=== PATIENT | female | born 1945 | race Caucasian/White ===

== ENCOUNTER 2017-04-06 09:38 | Emergency (ER) | payer MEDICARE, MEDICAID ==
[~2017-04-06 09:38] MED LIST: ARIP15TA2 PO; BUSP15TA3 PO; CHOL200025 PO; CITA20TA11 PO; DOCU250C2 PO; FERR-83 PO; FOLI1TAB18 PO; FURO-129 PO; HYDR-656 PO; LAMO100T2 PO; LORA0.5T PO; METO25TA99 PO; NITR0.4T6 SL; PANT40TA3 PO; RANI300T4 PO; TOPI200T7 PO; ZYL100 PO
[2017-04-06 09:44] VITALS: BP 164/83; PULSE 86; RESP 14; O2SAT 95
--- NOTE | 2017-04-06 10:18 | ED.REPORT ---
HPI-Extremity Problem Lower Date of Service April 06, 2017 ED Provider: Volodymyr Barajas MD 71 year old female with a history of CHF presents to the ER accompanied by her rn long term care complaining of three days of acute on chronic left lower extremity pain, localized in her ankle and barksdale. Pain is sharp in character, rated 10/10 in severity, and is exacerbated by weight-bearing and ambulation. Patient denies radiation of pain, weakness, chest pain, abdominal pain, and any recent trauma. She has a history of surgery to repair compound fractures in the affected extremity, performed by Dr. Shabazz, Orthopedics, at [facility]. Symptoms have been treated with acetaminophen without relief. Nursing Notes Stated Complaint: LEG PAIN Chief Complaint: Extremity Trauma Nursing Notes Reviewed: Yes Allergies: Coded Allergies: NSAIDS (Non-Steroidal Anti-Inflamma (Verified Allergy, Unknown, GI BLEEDING, 04/19/16) ampicillin (Verified Allergy, Unknown, 04/19/16) chlorpromazine HCl (Verified Allergy, Unknown, 04/19/16) warfarin (Verified Allergy, Unknown, GI BLEED, 04/19/16) Scheduled Allopurinol (Allopurinol) 100 Mg Tablet 100 MG PO DAILY Aripiprazole (Abilify) 15 Mg Tablet 15 MG PO DAILY Buspirone (Buspirone) 15 Mg Tablet 15 MG PO BID Cholecalciferol (Vitamin D3) (Vitamin D3) 2,000 Unit Tablet 2,000 UNIT PO BID Citalopram (Citalopram) 20 Mg Tablet 30 MG PO DAILY Ferrous Sulfate (Ferrous Sulfate) 325 Mg Tablet 325 MG PO BID Folic Acid (Folic Acid) 1 Mg Tablet 1 MG PO DAILY Furosemide (Lasix) 20 Mg Tablet 20 MG PO DAILY Lamotrigine (Lamotrigine) 100 Mg Tablet 100 MG PO BID Metoprolol Succinate ER (Metoprolol Succinate ER) 25 Mg Tab.er.24h 25 MG PO DAILY Pantoprazole DR (Pantoprazole DR) 40 Mg Tablet.dr 40 MG PO DAILY Ranitidine (Ranitidine) 300 Mg Tablet 300 MG PO HS Topiramate (Topiramate) 200 Mg Tablet 200 MG PO HS Scheduled PRN Docusate Sodium (Docusate Sodium) 250 Mg Capsule 250 MG PO DAILY PRN PRN DAILY Lorazepam (Lorazepam) 0.5 Mg Tablet 0.5 MG PO HS PRN PRN For Insomnia Nitroglycerin SL (Nitroglycerin SL) 0.4 Mg Tab.subl 0.4 MG SL PRN PRN PRN For Chest Pain hydrOXYzine Hcl (HydrOXYzine Hcl) 25 Mg Tablet 25 MG PO QID PRN PRN For Itching oxyCODONE-Acetaminophen 5-325 mg (oxyCODONE-Acetaminophen 5-325 mg) 1 Each Tablet 1 TAB PO Q4H PRN PRN For Pain General Time Seen by MD: 10:17 Chief Complaint Leg injury left Hx Obtained From: Patient Arrived By: Walk-in Onset Occurred: 3 days ago Symptom Duration: Since onset Location: : Ankle left: Leg left Quality: Sharp Severity: Current: Moderate Severity: Maximum: Pain level 10 out of 10 Associated with: Denies: Abdominal pain, Chest pain Pertinent Negative: Pt denies other symptoms Similar Sx Previous: Yes Past Medical History Past Medical History Small bowel obstruction 07/23 , 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, resolved as of 08/22 with wound VAC in place Bipolar borderline personality disorder Chronic anemia Back pain [place] congestive heart failure Reports: GERD, Hypertension Reports: Atrial fibrillation Past Surgical History History of self cutting Laparoscopic-assisted lysis of adhesions with minilaparotomy repair of enterotomy on July 30 Reports: Hysterectomy Family History Noncontributory Smoking History Never Smoker Social History Had been living independently with the rn long term care is currently at a alf facility after most recent hospital discharge EMS reports that there is a history of alcohol abuse Other Social History: Local resident Ambulatory Status Independent Review of Systems Constitutional: Denies: Chills, Fever Musculoskeletal: Reports: Extremity pain (Left Leg), Denies: Back pain, Joint pain, Lumbar pain, Neck pain, Thoracic pain Neurologic: Denies: Numbness, Syncope Complete sys rev & neg: except as marked. Respiratory: Denies: Non-productive cough, Shortness of breath Cardiovascular: Denies: Chest pain GI: Denies: Abdominal pain Physical Exam Initial Vital Signs Vital Signs (First) Date Time Temp Pulse Resp B/P Pulse Ox O2 Delivery O2 Flow Rate FiO2 04/06/17 09:44 36.2 86 14 164/83 95 Room Air Initial VS: Reviewed Head / Eyes: Atraumatic, Normocephalic, PERRL Neck: Supple, Non-tender, Full range of motion Abdomen / GI: Soft, Non-tender, No guarding, No rebound, No distention Upper Extremities: Vascular intact, Neuro intact, No swelling, No tenderness Skin: Warm, Dry, No cyanosis Neurologic: Alert, Oriented, Nonfocal Lower Extremity / Pelvis / MS: Full range of motion, No deformity, Neurologic intact, Vascular intact Left Leg / Calf: Positive: Tenderness present... (along the fibula) Minor excoriations along left anterior barksdale. Ankle / Foot: Full range of motion, No deformity, Neurologic intact, Vascular intact General/Constitutional: Awake, Alert, Well developed Interpretation & Diagnostics X-Ray Interpretation Xray Interpretation: IMPRESSION: No significant change compared to 2.27.17. Dictated by: Amanda Seals M.D. on 04/06/2017 at 11:14 Approved by: Amanda Seals M.D. on 04/06/2017 at 11:15 X-Ray Ordered: Tibia fibula left Interpretation / Wet Read by: Interpret - Radiologist Re-Eval/Medical Decision Source of Hx: Old records Re-Evaluation/Progress : Time of Eval: 12:21 Re-Evaluation/Progress Note: Discussed imaging results and plan to discharge. Patient is amenable to the plan. Return precautions given. All other questions addressed. Counseled Regarding: Diagnosis, Lab results, Need for follow-up, When/why to return to ED Discharge & Departure Impression: Primary Impression: Leg pain Laterality: left Qualified Code: M79.605 - Pain in left leg Disposition: Home Discharge Condition All VS Reviewed: Yes Condition: Improved Patient Instructions: Leg Pain (ED) Additional Instructions: Continue all OF YOUR regular medication. Take the stronger pain medication as needed. Be cautious of constipation while taking this. Follow up with your doctor in the coming days for further evaluation as needed. No evidence of infection or new fracture. X-ray is normal. Return to the ER if you develop new or uncontrollable pain, chest pain, fever, nausea, vomiting, or any other concerning symptoms. Referrals: Seema Nichols (PCP) Sc[employer] Attestation Portions of this note were transcribed by Raymond Kelsey. I, Dr. Barajas, personally performed the history, physical exam and medical decision-making; I reviewed and confirmed the accuracy of the information in the transcribed note. Signed by: Barbara Dillon, 04/06/2017 at 12:30 copies to: PendSeema aguilera Kirk H MD April 06, 2017 10:18 RAYMOND KELSEY April 06, 2017 10:39
[2017-04-06] MEDS ORDERED: oxyCODONE-Acetamin 5-325 mg Tablet PO ONE (10:55)
--- NOTE | 2017-04-06 11:16 | DRSVH ---
PROCEDURE: X-RAY LEFT TIBIA/FIBULA, TWO VIEWS ([id number]) INDICATIONS: pain, previous surgery TECHNIQUE: 2 views of the tibia and fibula were acquired. COMPARISON: [facility], CR, XR TIBIA FIBULA 2VW LT, 017, 9:38. FINDINGS: Bones: Near plasty. Intramedullary mini within distal femur. ORIF of tibia. Healed proximal fibular ne ck fracture. Chronic distal fibular fracture. Visualized fracture fragments are unchanged in alignmen t. No suspicious bony lesions. Soft tissues: No suspicious soft tissue calcifications or masses. IMPRESSION: No significant change compared to 2.27.17. Dictated by: Amanda Seals M.D. on 04/06/2017 at 11:14 Approved by: Amanda Seals M.D. on 04/06/2017 at 11:15
[2017-04-06] MEDS ORDERED: OXYC1TAB24 PO (12:26)
== END 2017-04-06 12:30 | disposition home or self-care (01) ==
LOC: SED 09:38
DX: M79.605 Pain in left leg (principal); G89.29 Other chronic pain; I11.0 Hypertensive heart disease with heart failure; I50.9 Heart failure, unspecified; D64.9 Anemia, unspecified; I25.2 Old myocardial infarction; K21.9 Gastro-esophageal reflux disease without esophagitis; F31.9 Bipolar disorder, unspecified; Z88.1 Allergy status to other antibiotic agents; Z88.8 Allergy status to other drugs, medicaments and biological substances

== ENCOUNTER 2017-04-16 10:52 | Emergency (ER) | payer MEDICARE, MEDICAID ==
[~2017-04-16] VITALS: Ht 177.8 cm; Wt 81.8 kg
[~2017-04-16 10:52] MED LIST changes: +OXYC1TAB24 PO
[2017-04-16 10:57] VITALS: BP 150/75; PULSE 77; RESP 15; O2SAT 95
--- NOTE | 2017-04-16 11:14 | ED.REPORT ---
HPI-Trauma Minor / Fall Date of Service Apr 16, 2017 ED Provider: Dr. Barajas 71 y/o female with a hx of CHF, HTN, fibromyalgia and A-fib presents to the ED complaining of left knee pain and swelling, onset 2 days ago after the pt fell onto cement floor. The pt states she has fallen 3 times in the last two days because she is experiencing limited range of motion in the left leg. She denies LOC after the fall. Nursing Notes Stated Complaint: FELL/LEFT LEG PAIN Chief Complaint: Multiple Trauma/Fall Nursing Notes Reviewed: Yes Allergies: Coded Allergies: NSAIDS (Non-Steroidal Anti-Inflamma (Verified Allergy, Unknown, GI BLEEDING, 04/19/16) ampicillin (Verified Allergy, Unknown, 04/19/16) chlorpromazine HCl (Verified Allergy, Unknown, 04/19/16) warfarin (Verified Allergy, Unknown, GI BLEED, 04/19/16) Scheduled Allopurinol (Allopurinol) 100 Mg Tablet 100 MG PO DAILY Aripiprazole (Abilify) 15 Mg Tablet 15 MG PO DAILY Buspirone (Buspirone) 15 Mg Tablet 15 MG PO BID Cholecalciferol (Vitamin D3) (Vitamin D3) 2,000 Unit Tablet 2,000 UNIT PO BID Citalopram (Citalopram) 20 Mg Tablet 30 MG PO DAILY Ferrous Sulfate (Ferrous Sulfate) 325 Mg Tablet 325 MG PO BID Folic Acid (Folic Acid) 1 Mg Tablet 1 MG PO DAILY Furosemide (Lasix) 20 Mg Tablet 20 MG PO DAILY Lamotrigine (Lamotrigine) 100 Mg Tablet 100 MG PO BID Metoprolol Succinate ER (Metoprolol Succinate ER) 25 Mg Tab.er.24h 25 MG PO DAILY Pantoprazole DR (Pantoprazole DR) 40 Mg Tablet.dr 40 MG PO DAILY Ranitidine (Ranitidine) 300 Mg Tablet 300 MG PO HS Topiramate (Topiramate) 200 Mg Tablet 200 MG PO HS Scheduled PRN Docusate Sodium (Docusate Sodium) 250 Mg Capsule 250 MG PO DAILY PRN PRN DAILY Lorazepam (Lorazepam) 0.5 Mg Tablet 0.5 MG PO HS PRN PRN For Insomnia Nitroglycerin SL (Nitroglycerin SL) 0.4 Mg Tab.subl 0.4 MG SL PRN PRN PRN For Chest Pain hydrOXYzine Hcl (HydrOXYzine Hcl) 25 Mg Tablet 25 MG PO QID PRN PRN For Itching oxyCODONE-Acetaminophen 5-325 mg (oxyCODONE-Acetaminophen 5-325 mg) 1 Each Tablet 1 TAB PO Q4H PRN PRN For Pain oxyCODONE-Acetaminophen 5-325 mg (oxyCODONE-Acetaminophen 5-325 mg) 1 Each Tablet 1 TAB PO Q6H PRN PRN For Pain General Time Seen by MD: 11:14 Chief Complaint Fall Hx Obtained From: Patient Arrived By: Walk-in Onset Occurred: 2 days ago Symptom Duration: Since onset Caused by: Fall on ground Location: Knee left Quality: Painful Severity: Current: Mild Severity: Maximum: Moderate Recent Healthcare: Recent doctor visit Similar Sx Previous: No Past Medical History Past Medical History Small bowel obstruction 07/23 , 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, resolved as of 08/[address] with wound [address] in place Bipolar borderline personality disorder Chronic anemia Back pain [place] congestive heart failure Reports: GERD, Hypertension Reports: Atrial fibrillation Past Surgical History History of self cutting Laparoscopic-assisted lysis of adhesions with minilaparotomy repair of enterotomy on July 30 Reports: Hysterectomy Family History Noncontributory Smoking History Never Smoker Social History Had been living independently with the plug shaper hand is currently at a jail facility after most recent hospital discharge EMS reports that there is a history of alcohol abuse Other Social History: Local resident Ambulatory Status Walker Review of Systems Musculoskeletal: Reports: Joint pain (Left knee), Joint swelling (Left knee) Neurologic: Denies: Change LOC Complete sys rev & neg: except as marked. Physical Exam Initial Vital Signs Vital Signs (First) Date Time Temp Pulse Resp B/P Pulse Ox O2 Delivery O2 Flow Rate FiO2 04/16/17 10:57 36.1 77 15 150/75 95 Room Air Initial VS: Reviewed Head / Eyes: Atraumatic, Normocephalic Respiratory: Breath sounds normal, No respiratory distress Cardiovascular: Regular rate & rhythm, Heart sounds normal, Intact distal pulses Abdomen / GI: Soft, Non-tender Extremities: Vascular intact, Neuro intact, No swelling, No tenderness Skin: Warm, Dry, No cyanosis Neurologic: Alert, Oriented, Nonfocal General/Constitutional: Awake, Alert, Cooperative Neck: Atraumatic, Full range of motion Lower Extremity / Pelvis / MS: Atraumatic, Full range of motion, No deformity, Neurologic intact, Vascular intact Left mid-barksdale mildly tender. Chronic wounds healed Interpretation & Diagnostics CT Head Interpretation IMPRESSION: 1. No acute intracranial abnormalities. 2. Cerebral volume loss and chronic microvascular ischemic changes. Dictated by: Jeffery Steele M.D. on 04/16/2017 at 11:57 Approved by: Jeffery Steele M.D. on 04/16/2017 at 11:58 Study: Head CT no contrast Interpretation / Wet Read by: Interpret - Radiologist Re-Eval/Medical Decision Source of Hx: Old records Re-Evaluation/Progress : Time of Eval: 11:20 Re-Evaluation/Progress Note: Rechecked pt. Discussed imaging results, diagnosis and plan to discharge. Pt understands and agrees with the plan. F/U instructions and RTER warning given. All questions addressed. Consultation : Call Returned at: 12:03 Regional Maintenance Manager: Agrees with eval, Agrees with plan Note: Consulted Ca Milan, who is ammunition components inspector for pt's PCP. She states it is okay to refill 14 Percocet pills. Counseled Regarding: Diagnosis, Lab results, Need for follow-up, When/why to return to ED Discharge & Departure Impression: Primary Impression: Left leg pain Additional Impressions: Facial contusion Encounter type: initial encounter Qualified Code: S00.83XA - Contusion of other part of head, initial encounter Fall from ground level Disposition: Home Discharge Condition All VS Reviewed: Yes Condition: Stable Patient Instructions: Contusion in Adults (ED) Additional Instructions: No dangerous injuries are suspected or identified today. I will refill the Percocet for today but would not be able to do this in the future. Follow-up with Seema next week as planned. Referrals: Seema Nichols (PCP) Scribe Attestation Portions of this note were transcribed by Dominick Das. I, , personally performed the history, physical exam and medical decision-making;I reviewed and confirmed the accuracy of the information in the transcribed note. Signed by Barbara Sampson. 04/16/17 12:03 copies to: Seema Nichols Kirk H MD Apr 16, 2017 11:14 Dominick Das Apr 16, 2017 11:19
--- NOTE | 2017-04-16 12:00 | DRSVH ---
PROCEDURE: CT BRAIN WITHOUT CONTRAST ([id number]) INDICATIONS: trauma TECHNIQUE: Noncontrast 4.5 mm thick angled axial sections acquired from the foramen magnum to the vertex, with c oronal reformats. COMPARISON: [facility], CT, CT BRAIN WO CON, 05/05/2016, 0:43. FINDINGS: Image quality: Excellent. CSF spaces: Basal cisterns are patent. No extra-axial fluid collections. The ventricles are symmet billy in size and shape. Brain: No intracranial bleeds or masses. There is mild to moderate cerebral volume loss for age, wi th resultant ventricular and sulcal prominence. There are mild to moderate periventricular and deep white matter chronic small vessel ischemic changes. There is intracranial internal carotid artery at herosclerosis. Skull and face: Calvarium and visualized facial bones appear intact, without suspicious lesions. Sinuses: Visualized sinuses and mastoids are clear. IMPRESSION: 1. No acute intracranial abnormalities. 2. Cerebral volume loss and chronic microvascular ischemic changes. Dictated by: Jeffery Steele M.D. on 04/16/2017 at 11:57 Approved by: Jeffery Steele M.D. on 04/16/2017 at 11:58
[2017-04-16] MEDS ORDERED: OXYC1TAB24 PO (12:44)
[2017-04-16 13:02] VITALS: BP 135/67; PULSE 66; RESP 20
== END 2017-04-16 13:00 | disposition home or self-care (01) ==
LOC: SED 10:52
DX: S00.83XA Contusion of other part of head, initial encounter (principal); M25.562 Pain in left knee; W01.0XXA Fall on same level from slipping, tripping and stumbling without subsequent striking against object, initial encounter; Y93.01 Activity, walking, marching and hiking; Y99.8 Other external cause status; Y92.89 Other specified places as the place of occurrence of the external cause; I10 Essential (primary) hypertension; I50.9 Heart failure, unspecified; I48.91 Unspecified atrial fibrillation; K21.9 Gastro-esophageal reflux disease without esophagitis; I25.2 Old myocardial infarction; Z86.2 Personal history of diseases of the blood and blood-forming organs and certain disorders involving the immune mechanism; Z90.710 Acquired absence of both cervix and uterus; Z88.8 Allergy status to other drugs, medicaments and biological substances; Z88.6 Allergy status to analgesic agent; Z88.1 Allergy status to other antibiotic agents

== ENCOUNTER 2017-05-26 09:21 | Emergency (ER) | payer MEDICARE, MEDICAID ==
[~2017-05-26] VITALS: Ht 175.3 cm; Wt 89.1 kg
[2017-05-26 09:33] VITALS: BP 132/84; PULSE 61; RESP 12; O2SAT 96
--- NOTE | 2017-05-26 10:20 | ED.REPORT ---
HPI-Extremity Problem Lower Date of Service May 26, 2017 ED Provider: Dr. Hanson 71 year old female with a history of CHF presents to the ER accompanied by her case therapist complaining of left ankle pain after she fell last night.The pt has experienced similar pain before and has been seen for it in the last two months. Her pain radiates half way up her barksdlae. She does not think she has a fracture but states it is painful to bear weight on the left leg. Nursing Notes Stated Complaint: LEG PAIN, FELL Chief Complaint: Extremity Trauma Nursing Notes Reviewed: Yes Allergies: Coded Allergies: NSAIDS (Non-Steroidal Anti-Inflamma (Verified Allergy, Unknown, GI BLEEDING, 04/19/16) ampicillin (Verified Allergy, Unknown, 04/19/16) chlorpromazine HCl (Verified Allergy, Unknown, 04/19/16) warfarin (Verified Allergy, Unknown, GI BLEED, 04/19/16) Scheduled Allopurinol (Allopurinol) 100 Mg Tablet 100 MG PO DAILY Aripiprazole (Abilify) 15 Mg Tablet 15 MG PO DAILY Buspirone (Buspirone) 15 Mg Tablet 15 MG PO BID Cholecalciferol (Vitamin D3) (Vitamin D3) 2,000 Unit Tablet 2,000 UNIT PO BID Citalopram (Citalopram) 20 Mg Tablet 30 MG PO DAILY Ferrous Sulfate (Ferrous Sulfate) 325 Mg Tablet 325 MG PO BID Folic Acid (Folic Acid) 1 Mg Tablet 1 MG PO DAILY Furosemide (Lasix) 20 Mg Tablet 20 MG PO DAILY Lamotrigine (Lamotrigine) 100 Mg Tablet 100 MG PO BID Metoprolol Succinate ER (Metoprolol Succinate ER) 25 Mg Tab.er.24h 25 MG PO DAILY Pantoprazole DR (Pantoprazole DR) 40 Mg Tablet.dr 40 MG PO DAILY Ranitidine (Ranitidine) 300 Mg Tablet 300 MG PO HS Topiramate (Topiramate) 200 Mg Tablet 200 MG PO HS Scheduled PRN Docusate Sodium (Docusate Sodium) 250 Mg Capsule 250 MG PO DAILY PRN PRN DAILY Lorazepam (Lorazepam) 0.5 Mg Tablet 0.5 MG PO HS PRN PRN For Insomnia Nitroglycerin SL (Nitroglycerin SL) 0.4 Mg Tab.subl 0.4 MG SL PRN PRN PRN For Chest Pain Oxycodone (Roxicodone) 5 Mg Tablet 2.5 MG PO QID PRN PRN For Pain hydrOXYzine Hcl (HydrOXYzine Hcl) 25 Mg Tablet 25 MG PO QID PRN PRN For Itching oxyCODONE-Acetaminophen 5-325 mg (oxyCODONE-Acetaminophen 5-325 mg) 1 Each Tablet 1 TAB PO Q4H PRN PRN For Pain oxyCODONE-Acetaminophen 5-325 mg (oxyCODONE-Acetaminophen 5-325 mg) 1 Each Tablet 1 TAB PO Q6H PRN PRN For Pain General Time Seen by MD: 10:20 Chief Complaint Ankle injury left Hx Obtained From: Patient Arrived By: Walk-in Onset Occurred: Yesterday Symptom Duration: Since onset Caused by: Fall on ground Location: : Ankle left Quality: Painful Severity: Current: Mild Severity: Maximum: Mild Recent Healthcare: Recent doctor visit Similar Sx Previous: Yes Past Medical History Past Medical History Small bowel obstruction 07/23 , 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, resolved as of 08/[address] with wound [address] in place Bipolar borderline personality disorder Chronic anemia Back pain [place] congestive heart failure Reports: GERD, Hypertension Reports: Atrial fibrillation Past Surgical History History of self cutting Laparoscopic-assisted lysis of adhesions with minilaparotomy repair of enterotomy on July 30 Reports: Hysterectomy Family History Noncontributory Smoking History Never Smoker Social History Had been living independently with the case therapist is currently at a [facility] facility after most recent hospital discharge EMS reports that there is a history of alcohol abuse Other Social History: Local resident Ambulatory Status Walker Review of Systems Musculoskeletal: Reports: Extremity pain (left leg), Joint pain (left ankle) Complete sys rev & neg: except as marked. Physical Exam Initial Vital Signs Vital Signs (First) Date Time Temp Pulse Resp B/P Pulse Ox O2 Delivery O2 Flow Rate FiO2 05/26/17 09:33 37.0 61 12 132/84 96 05/26/17 11:36 Room Air Initial VS: Reviewed Head / Eyes: Atraumatic, Normocephalic Neck: Supple, Non-tender, Full range of motion Respiratory: No respiratory distress Cardiovascular: Intact distal pulses (2+) Upper Extremities: Vascular intact, Neuro intact, No swelling, No tenderness Skin: Warm, Dry, No cyanosis Neurologic: Alert, Oriented, Nonfocal Lower Extremity / Pelvis / MS: Atraumatic, Full range of motion, No swelling, No deformity, Neurologic intact, Vascular intact Ankle / Foot: Full range of motion (without pain), No deformity, Neurologic intact, Vascular intact Post-op changes to left ankle. Cap refill less than 2 seconds. Motor and sensory function normal General/Constitutional: Awake, Alert, No acute distress, Cooperative Re-Eval/Medical Decision Med Decision/Clinical Course Unlikely to be a fracture, likely ankle sprain. Air stirrup given, stable with her walker. Oxycodone prescribed. Return and follow-up precautions given. Re-Evaluation/Progress : Time of Eval: 10:30 Re-Evaluation/Progress Note: Discussed diagnosis, plan to apply an ankle stirrup and discharge. She understands and agrees with the plan.F/U instructions and RTER warning given. All questions addressed. Counseled Regarding: Diagnosis, Need for follow-up, When/why to return to ED Discharge & Departure Impression: Primary Impression: Left ankle sprain Encounter type: initial encounter Involved ligament of ankle: unspecified ligament Qualified Code: S93.402A - Sprain of unspecified ligament of left ankle, initial encounter Disposition: Home Discharge Condition All VS Reviewed: Yes Condition: Stable Patient Instructions: Ankle Sprain (GEN) Additional Instructions: You sprained your ankle. Wear your air splint and use your walker, you can put weight on your foot if it doesn't hurt too much. You were given oxycodone to help your pain. See your doctor in a few days for a recheck. Referrals: Seema Nichols (PCP) Scribe Attestation Portions of this note were transcribed by Dominick Das. I,, personally performed the history, physical exam and medical decision-making;I reviewed and confirmed the accuracy of the information in the transcribed note. Signed by Barbara Sampson. 05/26/17 11:51 copies to: Seema Nichols Timothy S DO May 26, 2017 10:20 Dominick Das May 26, 2017 10:32
[2017-05-26] MEDS ORDERED: OXYC-474 PO (11:31)
[2017-05-26 11:36] VITALS: BP 142/84; PULSE 63; RESP 14; O2SAT 96
== END 2017-05-26 11:38 | disposition home or self-care (01) ==
LOC: SED 09:21
DX: S93.402A Sprain of unspecified ligament of left ankle, initial encounter (principal); W01.0XXA Fall on same level from slipping, tripping and stumbling without subsequent striking against object, initial encounter; Y93.01 Activity, walking, marching and hiking; Y99.8 Other external cause status; Y92.129 Unspecified place in nursing home as the place of occurrence of the external cause; I10 Essential (primary) hypertension; I25.2 Old myocardial infarction; I50.9 Heart failure, unspecified; K21.9 Gastro-esophageal reflux disease without esophagitis; I48.91 Unspecified atrial fibrillation; D64.9 Anemia, unspecified; Z90.710 Acquired absence of both cervix and uterus; Z88.1 Allergy status to other antibiotic agents; Z88.8 Allergy status to other drugs, medicaments and biological substances

== ENCOUNTER 2017-06-03 08:39 | Emergency (ER) | payer MEDICARE, MEDICAID ==
[~2017-06-03] VITALS: Ht 175.3 cm; Wt 89.1 kg
[2017-06-03 08:43] VITALS: BP 143/82; PULSE 72; RESP 12; O2SAT 93
--- NOTE | 2017-06-03 09:06 | ED.REPORT ---
HPI-General Illness Date of Service Jun 03, 2017 ED Provider: Asael Duque MD A 71 year old female with a history of hypertension, atrial fibrillation, CHF, MA, left knee replacement and left ankle fusion presents to the ED complaining of left lower extremity pain and swelling. The pt had left knee replacement and ankle fusion just over a year ago for traumatic fractures. She spent time in [facility] for recovery and was doing well following discharge, but has been experiencing left lower leg pain and swelling for the last three months. The pain is described as "sharp, burning pain" that extends into her ankle and is rated at a 10/10. She denies new trauma to cause her symptoms. The pt has physical therapy at home several times a week, and noticed increased pain and swelling after her latest appointment. The pain has worsened to the point that she has been unable to ambulate for two days. She denies other concerning symptoms at this time. The pt has been seen in the ED several times for this complaint, and has an appointment with her primary care physician in two days. The pt lives alone with a caregiver during certain days of the week, and has been unable to transfer recently. Nursing Notes Stated Complaint: LEG PAIN Chief Complaint: Extremity Trauma Nursing Notes Reviewed: Yes Allergies: Coded Allergies: NSAIDS (Non-Steroidal Anti-Inflamma (Verified Allergy, Unknown, GI BLEEDING, 04/19/16) ampicillin (Verified Allergy, Unknown, 04/19/16) chlorpromazine HCl (Verified Allergy, Unknown, 04/19/16) warfarin (Verified Allergy, Unknown, GI BLEED, 04/19/16) Scheduled Allopurinol (Allopurinol) 100 Mg Tablet 100 MG PO DAILY Aripiprazole (Abilify) 15 Mg Tablet 15 MG PO DAILY Buspirone (Buspirone) 15 Mg Tablet 15 MG PO BID Cholecalciferol (Vitamin D3) (Vitamin D3) 2,000 Unit Tablet 2,000 UNIT PO BID Citalopram (Citalopram) 20 Mg Tablet 30 MG PO DAILY Ferrous Sulfate (Ferrous Sulfate) 325 Mg Tablet 325 MG PO BID Folic Acid (Folic Acid) 1 Mg Tablet 1 MG PO DAILY Furosemide (Lasix) 20 Mg Tablet 20 MG PO DAILY Lamotrigine (Lamotrigine) 100 Mg Tablet 100 MG PO BID Metoprolol Succinate ER (Metoprolol Succinate ER) 25 Mg Tab.er.24h 25 MG PO DAILY Pantoprazole DR (Pantoprazole DR) 40 Mg Tablet.dr 40 MG PO DAILY Ranitidine (Ranitidine) 300 Mg Tablet 300 MG PO HS Topiramate (Topiramate) 200 Mg Tablet 200 MG PO HS Scheduled PRN Docusate Sodium (Docusate Sodium) 250 Mg Capsule 250 MG PO DAILY PRN PRN DAILY Lorazepam (Lorazepam) 0.5 Mg Tablet 0.5 MG PO HS PRN PRN For Insomnia Nitroglycerin SL (Nitroglycerin SL) 0.4 Mg Tab.subl 0.4 MG SL PRN PRN PRN For Chest Pain hydrOXYzine Hcl (HydrOXYzine Hcl) 25 Mg Tablet 25 MG PO QID PRN PRN For Itching oxyCODONE-Acetaminophen 5-325 mg (oxyCODONE-Acetaminophen 5-325 mg) 1 Each Tablet 1 TAB PO Q4H PRN PRN For Pain oxyCODONE-Acetaminophen 5-325 mg (oxyCODONE-Acetaminophen 5-325 mg) 1 Each Tablet 1 TAB PO Q6H PRN PRN For Pain General Time Seen by MD: 08:56 Chief Complaint Other (left lower leg pain) Hx Obtained From: Patient Arrived By: Wheelchair Sudden in Onset?: No Onset Occurred: More than a week ago... 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, resolved as of 08/22 with wound VAC in place Bipolar borderline personality disorder Chronic anemia Back pain MA congestive heart failure Reports: GERD, Hypertension Reports: Atrial fibrillation Past Surgical History History of self cutting Laparoscopic-assisted lysis of adhesions with minilaparotomy repair of enterotomy on July 30 left knee replacement left ankle fusion Reports: Hysterectomy Family History Noncontributory Smoking History Never Smoker Social History Had 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 Physical Exam Constitutional: Well-developed, well-nourished. Not diaphoretic. Head: Normocephalic and atraumatic. Mouth/Throat: Oropharynx is clear and moist. No oropharyngeal exudate. Eyes: EOM are normal. Pupils are equal, round, and reactive to light. Neck: Supple, no tracheal deviation. Cardiovascular: Normal rate, regular rhythm. Equal and intact distal pulses throughout. Pulmonary/Chest: Effort normal and breath sounds normal. No respiratory distress. Abdominal: Soft. No distension. There is no tenderness, rebound, or guarding. Bowel sounds present. Musculoskeletal: Diffuse pain to the distal left lower extremity. Minimal swelling. No redness or erythema. No bony tenderness of the left ankle or knee. Neurological: AOx3. Grossly nonfocal exam. Strength and sensation intact and equal to bilateral upper and lower extremities. Skin: Warm and dry, no rashes or pallor appreciated. Psychiatric: Appropriate mood and affect. Behavior appears normal. Vital Signs Vital Signs Date Time Temp Pulse Resp B/P Pulse Ox O2 Delivery O2 Flow Rate FiO2 06/03/17 11:18 72 16 157/68 98 Room Air 06/03/17 08:43 36.9 72 12 143/82 93 Room Air Initial VS: Reviewed Interpretation & Diagnostics Interpretation & Diagnostics: Left Tibia/Fibula X-Ray: IMPRESSION: 1. Slightly displaced fracture of the distal fibular shaft is new from the prior study and is likely acute. 2. Subacute healing fracture of the proximal fibular shaft is also new from the prior study. Recommend correlation with clinical history. 3. Old fractures of the distal femur and tibia redemonstrated with associated postsurgical changes. Dictated by: Stewart Ortez M.D. on 06/03/2017 at 10:26 Approved by: Stewart Ortez M.D. on 06/03/2017 at 10:31 Lab Results Interpretation Test 06/03/17 10:20 Hold Urine Received (Received) X-Ray Interpretation Xray Interpretation: IMPRESSION: 1. Limited single view of the left knee demonstrates no definite acute fracture or malalignment of the patella. Dictated by: Stewart Ortez M.D. on 06/03/2017 at 10:34 Approved by: Stewart Ortez M.D. on 06/03/2017 at 10:36 X-Ray Ordered: Knee left Interpretation / Wet Read by: Interpret - Radiologist Xray Interpretation: IMPRESSION: 1. Limited study demonstrates a mildly displaced acute fracture of the distal fibular shaft. Dictated by: Stewart Ortez M.D. on 06/03/2017 at 10:31 Approved by: Stewart Ortez M.D. on 06/03/2017 at 10:34 X-Ray Ordered: Ankle left Interpretation / Wet Read by: Interpret - Radiologist Re-Eval/Medical Decision Med Decision/Clinical Course In summary, 71-year-old female presenting to the ED for evaluation of distal left lower extremity pain over the past several months, worse in the past several days. No known trauma to the area. Differential includes compartment syndrome, DVT, fracture. Compartments are soft, not consistent with compartment syndrome. She has had a ultrasound recently and this was negative, denies any new swelling. No dyspnea. Also, the presence of what appear to be new fibular fractures are likely etiology for the patient's symptoms at this time. Discussed briefly with orthopedics as per below; appreciate recommendations. Neurovascularly intact. Plan for a walking boot and follow up in clinic as soon as able. Patient agreeable to the plan as stated, no further questions. Source of Hx: Old records Time of Eval: 10:50 Patient Status: Condition improved Re-Evaluation/Progress Note: Pt rechecked, who is resting. The diagnosis and plan for discharge are discussed. The pt understands and agrees with the plan. All questions are addressed at this time. Consultation : Referral / Consult Name: Prabhakar Goldberg MD Consulted With: Orthopedic Call Returned at: 10:43 Director Property: Agrees with eval, Agrees with plan Note: Consulted with Dr. Goldberg, orthopedics, regarding pt's case. Dr. Goldberg agrees with the evaluation and recommends boot with weight-bearing as tolerated. Counseled Regarding: Diagnosis, Lab results, Need for follow-up, When/why to return to ED Discharge & Departure Primary Impression: Fibula fracture Encounter type: initial encounter Fibula location: distal Fracture type: closed Fracture morphology: unspecified fracture morphology Laterality: left Qualified Code: S82.832A - Other fracture of upper and lower end of left fibula, initial encounter for closed fracture Disposition: Home Discharge Condition All VS Reviewed: Yes Condition: Stable Patient Instructions: Leg Fracture (DC) Additional Instructions: Thank you for allowing us to be a part of your care. Wear the boot until you are seen in follow up. Call to arrange a follow up appointment with orthopedics this week. Keep your appointment with your regular provider on Thursday. Return to the emergency department if you develop any new or worsening symptoms, including leg swelling, decreased sensation in your leg, worsening pain, or if there's anything else of concern to you. Referrals: Seema Nichols (PCP) Prabhakar Goldberg MD Attestation Portions of this note were transcribed by Amparo Sousa. I, Dr. Duque personally performed the history, physical exam and medical decision-making; I reviewed and confirmed the accuracy of the information in the transcribed note. Signed by: Barbara Hernandez, 06/03/2017 and 1100. copies to: Seema Nichols; Prabhakar Goldberg MD, William B MD Jun 03, 2017 09:06 AMPARO SOUSA Jun 03, 2017 09:26
[2017-06-03] MEDS ORDERED: HYDROmorphone 0.5 mg/0.5 mL iSecure Syringe IM ONE (09:40)
--- NOTE | 2017-06-03 10:32 | DRSVH ---
PROCEDURE: X-RAY LEFT TIBIA/FIBULA, TWO VIEWS ([id number]) INDICATIONS: hx of leg fx, leg pain TECHNIQUE: 2 views of the tibia and fibula were acquired. COMPARISON: [facility], CR, XR TIBIA FIBULA 2VW LT, 04/06/2017, 10:54. FINDINGS: Bones: There are postsurgical changes redemonstrated status post screw-plate fixation of the tibia w ith a chronic fracture of the distal tibial shaft. Fracture lines of the tibial fracture remain visi ble with bridging callus noted. There are also postsurgical changes within the distal femur redemons trated as low as a prior fracture of the distal femoral shaft. Fracture lines also remain visible wi th sclerosis along the fracture margins. A left knee prosthesis is also again noted. The surgical h ardware appears intact without new suspicious associated lucencies. Visualized osseous structures ap pear osteopenic. There is a slightly displaced fracture of the distal fibular shaft which is new from the prior study and suggestive of an acute fracture. There is a mildly displaced fracture of the proximal fibular sh aft which is also new from the prior study but which demonstrates associated callus formation and amalia dging bone compatible with a subacute process. Soft tissues: No suspicious soft tissue calcifications or masses. IMPRESSION: 1. Slightly displaced fracture of the distal fibular shaft is new from the prior study and is likely acute. 2. Subacute healing fracture of the proximal fibular shaft is also new from the prior study. Recomm end correlation with clinical history. 3. Old fractures of the distal femur and tibia redemonstrated with associated postsurgical changes. Dictated by: Stewart Ortez M.D. on 06/03/2017 at 10:26 Approved by: Stewart Ortez M.D. on 06/03/2017 at 10:31
--- NOTE | 2017-06-03 10:35 | DRSVH ---
PROCEDURE: X-RAY LEFT ANKLE, TWO VIEWS ([id number]) INDICATIONS: hx of leg fx, leg pain TECHNIQUE: 2 views of the ankle were acquired. COMPARISON: [facility], CR, XR TIBIA FIBULA 2VW LT, 04/06/2017, 10:54. [facility], CR, XR TIBIA FIBULA 2VW LT, 05/23/2016, 16:05. FINDINGS: Bones: 2 anterior views of the left ankle demonstrate a new mildly displaced fracture of the distal fibular shaft which appears acute. Post surgical changes redemonstrated in the distal tibia status p ost screw plate fixation which is incompletely included on the current study. There is osteopenia of the visualized osseous structures. Soft tissues: There is mild soft tissue swelling lateral to the distal fibula. IMPRESSION: 1. Limited study demonstrates a mildly displaced acute fracture of the distal fibular shaft. Dictated by: Stewart Ortez M.D. on 06/03/2017 at 10:31 Approved by: Stewart Ortez M.D. on 06/03/2017 at 10:34
--- NOTE | 2017-06-03 10:38 | DRSVH ---
PROCEDURE: X-RAY LEFT KNEE, ONE OR TWO VIEWS ([id number]) INDICATIONS: hx of leg fx, leg pain TECHNIQUE: 1 view of the knee acquired. COMPARISON: [facility], RG, KNEE 3VW (LT), 06/06/2016, 11:16. [facility], CR, XR TIBIA FIBULA 2VW LT, 06/03/2017, 10:04. [facility], CR, XR KNEE 1 OR 2VW LT, 05/23/2016, 16:06. FINDINGS: Single limited sunrise view of the knee redemonstrates a total knee prosthesis. Patellar alignment a ppears grossly preserved. IMPRESSION: 1. Limited single view of the left knee demonstrates no definite acute fracture or malalignment of t he patella. Dictated by: Stewart Ortez M.D. on 06/03/2017 at 10:34 Approved by: Stewart Ortez M.D. on 06/03/2017 at 10:36
[2017-06-03 11:18] VITALS: BP 157/68; PULSE 72; RESP 16; O2SAT 98
== END 2017-06-03 11:19 | disposition home or self-care (01) ==
LOC: SED 08:39
DX: S82.832A Other fracture of upper and lower end of left fibula, initial encounter for closed fracture (principal); X58.XXXA Exposure to other specified factors, initial encounter; Y93.9 Activity, unspecified; Y92.9 Unspecified place or not applicable; Y99.9 Unspecified external cause status; I11.0 Hypertensive heart disease with heart failure; I48.91 Unspecified atrial fibrillation; I50.9 Heart failure, unspecified; I25.2 Old myocardial infarction; F31.9 Bipolar disorder, unspecified; K21.9 Gastro-esophageal reflux disease without esophagitis; Z88.1 Allergy status to other antibiotic agents; Z88.8 Allergy status to other drugs, medicaments and biological substances; Z88.6 Allergy status to analgesic agent; Z96.652 Presence of left artificial knee joint; Z91.5 Personal history of self-harm
CPT/HCPCS: 73560; 73590; 73600; 96372; 99285; J1170